=== PATIENT | female | born 1995 | race Caucasian/White ===

== ENCOUNTER 2017-05-24 15:04 | Emergency (ER) | payer MEDICAID ==
[~2017-05-24] VITALS: Ht 162.6 cm; Wt 56.8 kg
[~2017-05-24 15:04] MED LIST: MACR100C2 PO; PREN29TA PO; ZOFR4TAB PO
[2017-05-24 15:15] VITALS: BP 131/86; PULSE 97; RESP 16; TEMP 98.4
[2017-05-24] MEDS ORDERED: SODIUM CHLOR 0.9% 1000 ML INJ 1,000 ML IV SCH (15:29)
[2017-05-24] MEDS ORDERED: SODIUM CHLORIDE 0.9% FLUSH 10 ML FLUSH IV FLUSH PRN (15:30)
[2017-05-24] MEDS ORDERED: ONDANSETRON HCL 4 MG/2 ML VIAL IVP ONE (15:30)
[2017-05-24] MEDS ORDERED: MORPHINE SULFATE 8 MG/ML INJ IV PUSH ONE ×2 (15:30→17:00)
[2017-05-24] MEDS ORDERED: FAMOTIDINE 20 MG/2 ML VIAL IV PUSH ONE (15:30)
[2017-05-24 15:33] LABS: BLOOD, URINE NEG (NEG); GLUCOSE,URINE NEG (NEG); KETONE, URINE NEG (NEG); NITRITE,URINE NEG (NEG)
--- NOTE | 2017-05-24 15:36 | PD ---
HPI Chief Complaint: Abdominal Pain Time Seen by Provider: 15:22 Travel History International Travel<30 days: No Contact w/Intl Traveler<30days: No Traveled to known affect area: No History of Present Illness HPI The patient is a 21-year-old female who presents to the emergency department for abdominal pain. The patient states she developed abdominal pain yesterday, generalized, but mostly located in epigastrium. She does complain of mild nausea without any vomiting, diarrhea, constipation, or change in bowel habits. The patient denies any associated dysuria, frequency, or urgency. She does have a history of previous cholecystectomy. Last menstrual cycle was May 14, 2017, denies . She denies any vaginal discharge or bleeding. The patient denies any acute alleviating or exacerbating factors. Symptoms are moderate, described as dull achy pain, and radiating from the epigastrium to the rest of the abdomen. PFSH Past Medical History ADHD: Yes (ADHD) Cancer: No Cardiovascular Problems: No Diabetes: No Diminished Hearing: No Headaches: Yes (OCCASIONAL HEADACHES) Psychiatric: Yes (PT DIAGNOSED PREVIOUSLY WITH ADHD AND ODD) Immunizations Current: Yes Migraines: No Seizures: No Thyroid Disease: No Ulcer: No ?: Not LMP: 05/14/17 : 2 : 1 Past Surgical History Appendectomy: No Section: No Cholecystectomy: Yes (12/2014) Other Surgery: No Social History Alcohol Use: Yes (rare WHEN NOT ) Tobacco Use: Yes (1 ppd) Substance Use: No Allergies-Medications (Allergen,Severity, Reaction): Coded Allergies: penicillin G (Unverified Allergy, Severe, 05/24/17) . Uncoded Allergies: LACTOSE INTOLERANT (Adverse Reaction, Severe, 05/24/17) .. Reported Meds & Prescriptions Reported Meds & Active Scripts Active Review of Systems Except as stated in HPI: all other systems reviewed are Neg General / Constitutional: No: Fever, Chills Cardiovascular: No: Chest Pain or Discomfort Respiratory: No: Shortness of Breath Gastrointestinal: Positive: Nausea, Abdominal Pain, No: Vomiting, Diarrhea Genitourinary: No: Urgency, Frequency, Dysuria, Discharge, Vaginal Bleeding Musculoskeletal: No: Myalgias Physical Exam Narrative GENERAL: Awake, alert, pleasant 21-year-old female who appears her stated age and is in no acute respiratory distress. SKIN: Focused skin assessment warm/dry. HEAD: Atraumatic. Normocephalic. EYES: No injection or drainage. ENT: No nasal bleeding or discharge. Mucous membranes pink and moist. NECK: Trachea midline. No JVD. CARDIOVASCULAR: Regular rate and rhythm. No murmur appreciated. RESPIRATORY: No accessory muscle use. Clear to auscultation. Breath sounds equal bilaterally. GASTROINTESTINAL: Abdomen soft, mild epigastric tenderness. No rebound tenderness, guarding, rigidity. Back: No CVA tenderness. MUSCULOSKELETAL: No obvious deformities. No clubbing. No cyanosis. No edema. NEUROLOGICAL: Awake and alert. No obvious cranial nerve deficits. Motor grossly within normal limits. Normal speech. PSYCHIATRIC: Appropriate mood and affect; insight and judgment normal. Data Data Last Documented VS Vital Signs Date Time Temp Pulse Resp B/P (MAP) Pulse Ox O2 Delivery O2 Flow Rate FiO2 05/24/17 16:38 16 05/24/17 15:55 99 Room Air 05/24/17 15:15 98.4 97 131/86 (101) Orders Orders Urinalysis - C+S If Indicated (05/24/17 15:15) Ed Urine Pregnancytest Poc (05/24/17 15:15) Complete Blood Count With Diff (05/24/17 15:29) Comprehensive Metabolic Panel (05/24/17 15:29) Lipase (05/24/17 15:29) Iv Access Insert/Monitor (05/24/17 15:29) Ecg Monitoring (05/24/17 15:29) Oximetry (05/24/17 15:29) Ondansetron Inj (Zofran Inj) (05/24/17 15:30) Sodium Chlor 0.9% 1000 Ml Inj (Ns 1000 M (05/24/17 15:29) Sodium Chloride 0.9% Flush (Ns Flush) (05/24/17 15:30) Famotidine Inj (Pepcid Inj) (05/24/17 15:30) Morphine Inj (Morphine Inj) (05/24/17 15:30) Al-Mag Hy-Si 40-40-4 Mg/Ml Liq (Mag-Al P (05/24/17 17:00) Lidocaine 2% Viscous (Xylocaine 2% Visco (05/24/17 17:00) Morphine Inj (Morphine Inj) (05/24/17 17:00) Labs Laboratory Tests Test 05/24/17 15:25 05/24/17 15:45 Urine Color YELLOW Urine Turbidity CLEAR Urine pH 7.0 Urine Specific [place] 1.018 Urine Protein NEG mg/dL Urine Glucose (UA) NEG mg/dL Urine Ketones NEG mg/dL Urine Occult Blood NEG Urine Nitrite NEG Urine Bilirubin NEG Urine Leukocyte Esterase NEG Urine WBC 0-2 /hpf Urine Squamous Epithelial Cells 0-5 /hpf Urine Amorphous Sediment LARGE Microscopic Urinalysis Comment CULT NOT INDICATED White Blood Count 5.2 TH/MM3 Red Blood Count 4.89 MIL/MM3 Hemoglobin 14.1 GM/DL Hematocrit 41.5 % Mean Corpuscular Volume 84.9 FL Mean Corpuscular Hemoglobin 28.9 PG Mean Corpuscular Hemoglobin Concent 34.0 % Red Cell Distribution Width 14.4 % Platelet Count 281 TH/MM3 Mean Platelet Volume 7.5 FL Neutrophils (%) (Auto) 51.1 % Lymphocytes (%) (Auto) 37.3 % Monocytes (%) (Auto) 8.3 % Eosinophils (%) (Auto) 2.4 % Basophils (%) (Auto) 0.9 % Neutrophils # (Auto) 2.8 TH/MM3 Lymphocytes # (Auto) 1.9 TH/MM3 Monocytes # (Auto) 0.4 TH/MM3 Eosinophils # (Auto) 0.1 TH/MM3 Basophils # (Auto) 0.0 TH/MM3 CBC Comment DIFF FINAL Differential Comment Blood Urea Nitrogen 14 MG/DL Creatinine 0.85 MG/DL Random Glucose 92 MG/DL Total Protein 7.6 GM/DL Albumin 3.7 GM/DL Calcium Level 8.6 MG/DL Alkaline Phosphatase 55 U/L Aspartate Amino Transf (AST/SGOT) 17 U/L Alanine Aminotransferase (ALT/SGPT) 19 U/L Total Bilirubin 0.4 MG/DL Sodium Level 136 MEQ/L Potassium Level 4.1 MEQ/L Chloride Level 102 MEQ/L Carbon Dioxide Level 26.8 MEQ/L Anion Gap 7 MEQ/L Estimat Glomerular Filtration Rate 83 ML/MIN Lipase 274 U/L [facility] Medical Decision Making Medical Screen Exam Complete: Yes Emergency Medical Condition: Yes Medical Record Reviewed: Yes Interpretation(s) Laboratory Tests Test 05/24/17 15:25 05/24/17 15:45 Urine Color YELLOW Urine Turbidity CLEAR Urine pH 7.0 Urine Specific [place] 1.018 Urine Protein NEG mg/dL Urine Glucose (UA) NEG mg/dL Urine Ketones NEG mg/dL Urine Occult Blood NEG Urine Nitrite NEG Urine Bilirubin NEG Urine Leukocyte Esterase NEG Urine WBC 0-2 /hpf Urine Squamous Epithelial Cells 0-5 /hpf Urine Amorphous Sediment LARGE Microscopic Urinalysis Comment CULT NOT INDICATED White Blood Count 5.2 TH/MM3 Red Blood Count 4.89 MIL/MM3 Hemoglobin 14.1 GM/DL Hematocrit 41.5 % Mean Corpuscular Volume 84.9 FL Mean Corpuscular Hemoglobin 28.9 PG Mean Corpuscular Hemoglobin Concent 34.0 % Red Cell Distribution Width 14.4 % Platelet Count 281 TH/MM3 Mean Platelet Volume 7.5 FL Neutrophils (%) (Auto) 51.1 % Lymphocytes (%) (Auto) 37.3 % Monocytes (%) (Auto) 8.3 % Eosinophils (%) (Auto) 2.4 % Basophils (%) (Auto) 0.9 % Neutrophils # (Auto) 2.8 TH/MM3 Lymphocytes # (Auto) 1.9 TH/MM3 Monocytes # (Auto) 0.4 TH/MM3 Eosinophils # (Auto) 0.1 TH/MM3 Basophils # (Auto) 0.0 TH/MM3 CBC Comment DIFF FINAL Differential Comment Blood Urea Nitrogen 14 MG/DL Creatinine 0.85 MG/DL Random Glucose 92 MG/DL Total Protein 7.6 GM/DL Albumin 3.7 GM/DL Calcium Level 8.6 MG/DL Alkaline Phosphatase 55 U/L Aspartate Amino Transf (AST/SGOT) 17 U/L Alanine Aminotransferase (ALT/SGPT) 19 U/L Total Bilirubin 0.4 MG/DL Sodium Level 136 MEQ/L Potassium Level 4.1 MEQ/L Chloride Level 102 MEQ/L Carbon Dioxide Level 26.8 MEQ/L Anion Gap 7 MEQ/L Estimat Glomerular Filtration Rate 83 ML/MIN Lipase 274 U/L Differential Diagnosis Differential diagnosis includes , ectopic , UTI, pyelonephritis, pancreatitis, gastritis, peptic ulcer disease, retained biliary stone. Narrative Course IV was established, labs are drawn and sent, and the patient was placed on cardiac telemetry monitoring and continuous pulse oximetry monitoring. Bedside UA test was obtained, was negative. UA was sent to lab. Patient was administered morphine, Pepcid, Zofran, and IV fluids. UA is unremarkable. test is negative. LFTs and lipase are unremarkable. The patient appears to have gastritis, was reevaluated, was sleeping, however, when awakened she said she continued to have pain. Therefore, patient was given a GI cocktail and that there dose of pain medications. The patient is advised to follow-up with gastroenterology on an outpatient basis for possible endoscopy if symptoms persist. The patient be discharged home on Zantac twice a day and Zofran. She is stable for outpatient follow-up. Diagnosis Primary Impression: Gastritis Qualified Codes: K29.00 - Acute gastritis without bleeding Additional Impression: Epigastric abdominal pain Patient Instructions: General Instructions Additional Instructions: Please provide the patient copy of her labs at discharge. Medications as directed. Follow-up with a primary physician. Return if symptoms worsen or progress. If symptoms persist she may benefit from outpatient gastroenterology evaluation for possible outpatient EGD. Med/Other Pt SpecificInfo: Prescription(s) given Scripts Ondansetron Odt (Zofran Odt) 4 Mg Tab 4 MG SL Q6HR Y for Nausea/Vomiting, #10 TAB 0 Refills Prov: Elbert Johnston MD 05/24/17 Ranitidine (Zantac) 150 Mg Tab 150 MG PO BID for Reduce Stomach Acid, #60 TAB 0 Refills Prov: Elbert Johnston MD 05/24/17 Disposition: 01 DISCHARGE HOME Condition: Stable Elbert Johnston MD May 24, 2017 15:36
[2017-05-24 15:48] LABS: COMMENT (UR) CULT NOT INDICATED; CULTURE IF INDICATED CULT NOT INDICATED; SQUAMOUS EPITHELIAL CELL URINE 0-5 /hpf (0-5); URINE COLOR YELLOW (YELLW/STRAW); WBC, URINE 0-2 /hpf (0-5)
[2017-05-24 15:55] VITALS: RESP 16; O2SAT 99
[2017-05-24 16:00] LABS: CHLORIDE 102 MEQ/L (98-107); POTASSIUM 4.1 MEQ/L (3.5-5.1); SODIUM (NA) 136 MEQ/L (136-145)
[2017-05-24 16:04] LABS: ANION GAP 7 MEQ/L (5-15); BICARBONATE 26.8 MEQ/L (21.0-32.0); BLOOD UREA NITROGEN 14 MG/DL (7-18)
[2017-05-24 16:07] LABS: ALT (GPT) 19 U/L (10-53); AST (GOT) 17 U/L (15-37); GLOMERULAR FILTRATION RATE 83 ML/MIN (>89)
[2017-05-24 16:08] LABS: TOTAL BILIRUBIN ADULT 0.4 MG/DL (0.2-1.0)
[2017-05-24 16:10] LABS: ALKALINE PHOSPHATASE 55 U/L (45-117)
[2017-05-24 16:31] LABS: AUTOMATED NEUTROPHIL # 2.8 TH/MM3 (1.8-7.7); BASOPHIL % 0.9 % (0.0-2.0); EOSINOPHIL # 0.1 TH/MM3 (0-0.4); EOSINOPHIL % 2.4 % (0.0-4.0); HEMATOCRIT 41.5 % (35.0-46.0); HEMO FLAGS DIFF FINAL; LYMPH % 37.3 % (9.0-44.0); LYMPHOCYTE # 1.9 TH/MM3 (1.0-4.8); MEAN CELL VOLUME 84.9 FL (80.0-100.0); MEAN CORPUSCULAR HEMOGLOBIN 28.9 PG (27.0-34.0); MONO % 8.3 % (0.0-8.0); NEUT % 51.1 % (16.0-70.0); PLATELET COUNT 281 TH/MM3 (150-450); RED BLOOD COUNT 4.89 MIL/MM3 (4.00-5.30); RED CELL DISTRIBUTION WIDTH 14.4 % (11.6-17.2); WHITE BLOOD COUNT 5.2 TH/MM3 (4.0-11.0)
[2017-05-24 16:32] VITALS: BP 110/61; PULSE 80; RESP 16; O2SAT 98
[2017-05-24] MEDS ORDERED: ALUMINUM/MAGNESIUM/SIMETH 30 ML CUP PO ONE (17:00)
[2017-05-24] MEDS ORDERED: LIDOCAINE VISCOUS 2% SOLN 15 ML UDC PO ONE (17:00)
[2017-05-24] MEDS ORDERED: ZANT150T2 PO (17:06)
[2017-05-24] MEDS ORDERED: ZOFR4TAB3 SL (17:06)
[2017-05-24] MEDS ORDERED: DICYCLOMINE HCL 10 MG CAP PO ONE (17:30)
[2017-05-24 17:45] VITALS: BP 103/56; PULSE 76; RESP 16; O2SAT 97
== END 2017-05-24 17:56 | disposition home or self-care (01) ==
LOC: PHED 15:04
DX: K29.00 Acute gastritis without bleeding (principal); F17.200 Nicotine dependence, unspecified, uncomplicated; Z90.49 Acquired absence of other specified parts of digestive tract
CPT/HCPCS: 80053; 81001; 83690; 84703; 85025; 96361; 96374; 96375; 96376; 99284; J2270; J2405; J7030

== ENCOUNTER 2017-07-30 14:11 | Emergency (ER) | payer MEDICAID ==
[~2017-07-30] VITALS: Ht 162.6 cm; Wt 58.0 kg
[~2017-07-30 14:11] MED LIST changes: -MACR100C2 PO; -PREN29TA PO; +ZANT150T2 PO; -ZOFR4TAB PO; +ZOFR4TAB3 SL
[2017-07-30 14:15] VITALS: BP 131/76; PULSE 72; RESP 16; TEMP 97.8; O2SAT 100
[2017-07-30 14:28] LABS: BILIRUBIN, URINE NEG (NEG); BLOOD, URINE NEG (NEG); GLUCOSE,URINE NEG (NEG); KETONE, URINE NEG (NEG); NITRITE,URINE NEG (NEG); URINE LEUKOCYTE ESTERASE MOD (NEG)
[2017-07-30 14:48] LABS: SQUAMOUS EPITHELIAL CELL URINE 0-5 /hpf (0-5); URINE COLOR YELLOW (YELLW/STRAW)
[2017-07-30 14:49] LABS: WHITE BLOOD CELL CLUMPS FEW
[2017-07-30 14:50] LABS: BACTERIA, URINE RARE /hpf
[2017-07-30] MEDS ORDERED: SODIUM CHLOR 0.9% 1000 ML INJ 1,000 ML IV ONE (14:56)
[2017-07-30] MEDS ORDERED: KETOROLAC TROMETHAMINE 30 MG/ML (IVP) VIAL IV PUSH ONE (15:00)
[2017-07-30] MEDS ORDERED: cefTRIAXone INJ 1,000 MG in SODIUM CHLORIDE 0.9% INJ 100 ML IV ONE (15:00)
--- NOTE | 2017-07-30 15:02 | PD ---
HPI Chief Complaint: Complaint Time Seen by Provider: 14:47 Travel History International Travel<30 days: No Contact w/Intl Traveler<30days: No Traveled to known affect area: No History of Present Illness HPI This 21-year-old female is complaining of lower abdominal pain. She had a baby 8 months ago. Her last period was last week and lasted 3 days. She's been having lower abdominal pain for several months but has gotten a lot worse the last few days. She has noted some discharge. She has some burning with urination. She has cold sweats at times. He does not recall having this pain before. Pain is suprapubic and bilateral PFSH Past Medical History ADHD: Yes (ADHD) Weight (Kg): 3 Cancer: No Cardiovascular Problems: No Diabetes: No Diminished Hearing: No Headaches: Yes (OCCASIONAL HEADACHES) Psychiatric: Yes (PT DIAGNOSED PREVIOUSLY WITH ADHD AND ODD) Immunizations Current: Yes Migraines: No Seizures: No Thyroid Disease: No Ulcer: No Tetanus Vaccination: < 5 Years Influenza Vaccination: No ?: Not LMP: ONE WEEK : 2 Para: 1 : 1 Past Surgical History Appendectomy: No Section: No Cholecystectomy: Yes (12/2014) Other Surgery: No Social History Alcohol Use: Yes (rare WHEN NOT ) Tobacco Use: Yes (1 ppd) Substance Use: No Allergies-Medications (Allergen,Severity, Reaction): Coded Allergies: penicillin G (Unverified Allergy, Severe, 07/30/17) . Uncoded Allergies: LACTOSE INTOLERANT (Adverse Reaction, Severe, 05/24/17) .. Reported Meds & Prescriptions Reported Meds & Active Scripts Active Zofran Odt (Ondansetron Odt) 4 Mg Tab 4 Mg SL Q6HR PRN Zantac (Ranitidine HCl) 150 Mg Tab 150 Mg PO BID Review of Systems General / Constitutional: Positive: Chills, No: Fever Eyes: No: Blurred Vision, Photophobia HENT: No: Headaches, Vertigo Cardiovascular: No: Chest Pain or Discomfort, Palpitations Respiratory: No: Cough, Shortness of Breath Gastrointestinal: Positive: Abdominal Pain, No: Constipation Genitourinary: Positive: Dysuria, Pelvic Pain, Discharge Musculoskeletal: No: Myalgias, Arthralgias Skin: No Rash Neurologic: No: Weakness, Dizziness Hematologic/Lymphatic: No: Easy Bruising Physical Exam Narrative GENERAL: Well-developed male SKIN: Focused skin assessment warm/dry. HEAD: Atraumatic. Normocephalic. EYES: Pupils equal and round. No scleral icterus. No injection or drainage. ENT: No nasal bleeding or discharge. Mucous membranes pink and moist. NECK: Trachea midline. No JVD. CARDIOVASCULAR: Regular rate and rhythm. No murmur appreciated. RESPIRATORY: No accessory muscle use. Clear to auscultation. Breath sounds equal bilaterally. GASTROINTESTINAL: Abdomen soft, lower abdominal tenderness nondistended. Hepatic and splenic margins not palpable. Pelvic: There is heavy discharge. There is pain with movement of the cervix. There is bilateral adnexal and uterine tenderness. MUSCULOSKELETAL: No obvious deformities. No clubbing. No cyanosis. No edema. NEUROLOGICAL: Awake and alert. No obvious cranial nerve deficits. Motor grossly within normal limits. Normal speech. PSYCHIATRIC: Appropriate mood and affect; insight and judgment normal. Data Data Last Documented VS Vital Signs Date Time Temp Pulse Resp B/P (MAP) Pulse Ox O2 Delivery O2 Flow Rate FiO2 07/30/17 14:15 97.8 72 16 131/76 (94) 100 Orders Orders Urinalysis - C+S If Indicated (07/30/17 14:18) Ed Urine Pregnancytest Poc (07/30/17 14:18) Complete Blood Count With Diff (07/30/17 14:56) Basic Metabolic Panel (Bmp) (07/30/17 14:56) Gc And Chlamydia Pcr (07/30/17 14:56) Us Pelvis Comp Electronic Gaming Device Supervisor/Non-Preg (07/30/17 ) Wet Prep Profile (07/30/17 14:56) Iv Access Insert/Monitor (07/30/17 14:56) Ceftriaxone Inj (Rocephin Inj) (07/30/17 15:00) Sodium Chlor 0.9% 1000 Ml Inj (Ns 1000 M (07/30/17 14:56) Ketorolac Inj (Toradol Inj) (07/30/17 15:00) Urine Culture (07/30/17 14:15) Labs Laboratory Tests Test 07/30/17 14:15 07/30/17 15:00 Urine Color YELLOW Urine Turbidity CLEAR Urine pH 7.0 Urine Specific [place] 1.008 Urine Protein NEG mg/dL Urine Glucose (UA) NEG mg/dL Urine Ketones NEG mg/dL Urine Occult Blood NEG Urine Nitrite NEG Urine Bilirubin NEG Urine Leukocyte Esterase MOD Urine WBC 3-5 /hpf Urine WBC Clumps FEW Urine Squamous Epithelial Cells 0-5 /hpf Urine Bacteria RARE /hpf Microscopic Urinalysis Comment CULTURE INDICATED White Blood Count 5.3 TH/MM3 Red Blood Count 4.55 MIL/MM3 Hemoglobin 13.5 GM/DL Hematocrit 40.3 % Mean Corpuscular Volume 88.6 FL Mean Corpuscular Hemoglobin 29.7 PG Mean Corpuscular Hemoglobin Concent 33.5 % Red Cell Distribution Width 13.3 % Platelet Count 262 TH/MM3 Mean Platelet Volume 7.5 FL Neutrophils (%) (Auto) 63.1 % Lymphocytes (%) (Auto) 27.6 % Monocytes (%) (Auto) 7.3 % Eosinophils (%) (Auto) 1.1 % Basophils (%) (Auto) 0.9 % Neutrophils # (Auto) 3.3 TH/MM3 Lymphocytes # (Auto) 1.5 TH/MM3 Monocytes # (Auto) 0.4 TH/MM3 Eosinophils # (Auto) 0.1 TH/MM3 Basophils # (Auto) 0.0 TH/MM3 CBC Comment DIFF FINAL Differential Comment Clue Cells (Wet Prep) NONE SEEN Vaginal Trichomonas (Wet Prep) NONE SEEN Vaginal Yeast (Wet Prep) NONE SEEN Blood Urea Nitrogen 10 MG/DL Creatinine 0.68 MG/DL Random Glucose 88 MG/DL Calcium Level 8.9 MG/DL Sodium Level 137 MEQ/L Potassium Level 3.5 MEQ/L Chloride Level 103 MEQ/L Carbon Dioxide Level 29.1 MEQ/L Anion Gap 5 MEQ/L Estimat Glomerular Filtration Rate 107 ML/MIN [facility] Medical Decision Making Medical Screen Exam Complete: Yes Emergency Medical Condition: Yes Medical Record Reviewed: Yes Differential Diagnosis Differential includes ectopic , PID, tubo-ovarian abscess Narrative Course test is negative. Patient has been given Rocephin. Pelvic exam is consistent with PID. An ultrasound has been ordered to rule out tubo-ovarian abscess. Hemoglobin is 13 5 with a white count of 5.7. Wet prep is negative Diagnosis Primary Impression: Pelvic inflammatory disease Scripts Doxycycline (Monohydrate) (Doxycycline) 100 Mg Cap 1 TAB PO BID for 20 Days Prov: Doug Ahumada MD 07/30/17 Disposition: 01 DISCHARGE HOME Condition: Stable Doug Ahumada MD Jul 30, 2017 15:02
[2017-07-30 15:15] LABS: AUTOMATED NEUTROPHIL # 3.3 TH/MM3 (1.8-7.7); BASOPHIL % 0.9 % (0.0-2.0); EOSINOPHIL # 0.1 TH/MM3 (0-0.4); EOSINOPHIL % 1.1 % (0.0-4.0); HEMATOCRIT 40.3 % (35.0-46.0); HEMOGLOBIN 13.5 GM/DL (11.6-15.3); LYMPH % 27.6 % (9.0-44.0); LYMPHOCYTE # 1.5 TH/MM3 (1.0-4.8); MEAN CELL VOLUME 88.6 FL (80.0-100.0); MEAN CORPUSCULAR HEMOGLOBIN 29.7 PG (27.0-34.0); MEAN CORPUSCULAR HGB CONC 33.5 % (32.0-36.0); MEAN PLATELET VOLUME 7.5 FL (7.0-11.0); MONO % 7.3 % (0.0-8.0); MONOCYTE # 0.4 TH/MM3 (0-0.9); NEUT % 63.1 % (16.0-70.0); PLATELET COUNT 262 TH/MM3 (150-450); RED BLOOD COUNT 4.55 MIL/MM3 (4.00-5.30); RED CELL DISTRIBUTION WIDTH 13.3 % (11.6-17.2); WHITE BLOOD COUNT 5.3 TH/MM3 (4.0-11.0)
[2017-07-30 15:30] LABS: BICARBONATE 29.1 MEQ/L (21.0-32.0); CALCIUM 8.9 MG/DL (8.5-10.1)
[2017-07-30 15:34] LABS: CREATININE 0.68 MG/DL (0.50-1.00)
[2017-07-30] MEDS ORDERED: DOXY1CAP91 PO (15:47)
[2017-07-30 16:22] VITALS: BP 114/75; PULSE 68; RESP 18; O2SAT 100
--- NOTE | 2017-07-30 16:42 | RADRPT ---
EXAM DATE/TIME: 07/30/2017 16:05 [place] COMPARISON: No previous studies available for comparison. INDICATIONS : Pelvic pain. MEDICAL HISTORY : Pelvic pain. SURGICAL HISTORY : Cholecystectomy. ENCOUNTER: Initial ACUITY: 4-6 days PAIN SCORE: 7/10 LOCATION: Bilateral pelvis MEASUREMENTS: UTERUS: 7.1 x 4.0 x 3.5 cm ENDOMETRIAL STRIPE: 9 mm RIGHT OVARY: 2.5 x 1.9 x 1.7 cm LEFT OVARY: 1.8 x 3.2 x 1.3 cm FINDINGS: UTERUS: The myometrium has homogeneous echotexture without mass. RIGHT OVARY: Ovary contains no mass or significant cystic lesion. LEFT OVARY: Ovary contains no mass or significant cystic lesion. MISCELLANEOUS: Small amount free fluid. CONCLUSION: 1. Free fluid in the pelvic cul-de-sac 2. No evidence of complex cystic or solid masses in the adnexa 3. Cervical cysts likely resenting a nabothian cyst. 4. otherwise normal appearing uterus and ovaries Panda Lee MD on July 30, 2017 at 16:37 Board Certified Radiologist. This report was verified electronically.
--- NOTE | 2017-07-30 16:52 | PD ---
Physical Exam Narrative Patient was seen by ED physician and signed out to me. Data Data Last Documented VS Vital Signs Date Time Temp Pulse Resp B/P (MAP) Pulse Ox O2 Delivery O2 Flow Rate FiO2 07/30/17 16:22 68 18 114/75 (88) 100 Room Air 07/30/17 14:15 97.8 Orders Orders Urinalysis - C+S If Indicated (07/30/17 14:18) Ed Urine Pregnancytest Poc (07/30/17 14:18) Complete Blood Count With Diff (07/30/17 14:56) Basic Metabolic Panel (Bmp) (07/30/17 14:56) Gc And Chlamydia Pcr (07/30/17 14:56) Us Pelvis Comp Medical Claims Representative/Non-Preg (07/30/17 ) Wet Prep Profile (07/30/17 14:56) Iv Access Insert/Monitor (07/30/17 14:56) Ceftriaxone Inj (Rocephin Inj) (07/30/17 15:00) Sodium Chlor 0.9% 1000 Ml Inj (Ns 1000 M (07/30/17 14:56) Ketorolac Inj (Toradol Inj) (07/30/17 15:00) Urine Culture (07/30/17 14:15) Labs Laboratory Tests Test 07/30/17 14:15 07/30/17 15:00 Urine Color YELLOW Urine Turbidity CLEAR Urine pH 7.0 Urine Specific [place] 1.008 Urine Protein NEG mg/dL Urine Glucose (UA) NEG mg/dL Urine Ketones NEG mg/dL Urine Occult Blood NEG Urine Nitrite NEG Urine Bilirubin NEG Urine Leukocyte Esterase MOD Urine WBC 3-5 /hpf Urine WBC Clumps FEW Urine Squamous Epithelial Cells 0-5 /hpf Urine Bacteria RARE /hpf Microscopic Urinalysis Comment CULTURE INDICATED White Blood Count 5.3 TH/MM3 Red Blood Count 4.55 MIL/MM3 Hemoglobin 13.5 GM/DL Hematocrit 40.3 % Mean Corpuscular Volume 88.6 FL Mean Corpuscular Hemoglobin 29.7 PG Mean Corpuscular Hemoglobin Concent 33.5 % Red Cell Distribution Width 13.3 % Platelet Count 262 TH/MM3 Mean Platelet Volume 7.5 FL Neutrophils (%) (Auto) 63.1 % Lymphocytes (%) (Auto) 27.6 % Monocytes (%) (Auto) 7.3 % Eosinophils (%) (Auto) 1.1 % Basophils (%) (Auto) 0.9 % Neutrophils # (Auto) 3.3 TH/MM3 Lymphocytes # (Auto) 1.5 TH/MM3 Monocytes # (Auto) 0.4 TH/MM3 Eosinophils # (Auto) 0.1 TH/MM3 Basophils # (Auto) 0.0 TH/MM3 CBC Comment DIFF FINAL Differential Comment Clue Cells (Wet Prep) NONE SEEN Vaginal Trichomonas (Wet Prep) NONE SEEN Vaginal Yeast (Wet Prep) NONE SEEN Blood Urea Nitrogen 10 MG/DL Creatinine 0.68 MG/DL Random Glucose 88 MG/DL Calcium Level 8.9 MG/DL Sodium Level 137 MEQ/L Potassium Level 3.5 MEQ/L Chloride Level 103 MEQ/L Carbon Dioxide Level 29.1 MEQ/L Anion Gap 5 MEQ/L Estimat Glomerular Filtration Rate 107 ML/MIN MDM Supervised Visit with NATALIA: No Interpretation(s) Last Impressions Pelvis Ultrasound 07/30/17 0000 Signed Impressions: Service Date/Time: Sunday, July 30, 2017 16:05 - CONCLUSION: 1. Free fluid in the pelvic cul-de-sac 2. No evidence of complex cystic or solid masses in the adnexa 3. Cervical cysts likely resenting a nabothian cyst. 4. otherwise normal appearing uterus and ovaries Panda Lee MD Diagnosis Primary Impression: Pelvic inflammatory disease Patient Instructions: General Instructions Additional Instruction: Doxycycline as directed. Tylenol or ibuprofen for pain. Follow-up with personal physician and controls technician. Return if worse. Med/Other Pt SpecificInfo: Prescription(s) given Scripts Doxycycline (Monohydrate) (Doxycycline) 100 Mg Cap 1 TAB PO BID for 20 Days Prov: Doug Ahumada MD 07/30/17 Disposition: 01 DISCHARGE HOME Condition: Stable Holger Nichole MD Jul 30, 2017 16:52
== END 2017-07-30 17:04 | disposition home or self-care (01) ==
LOC: PHED 14:11
DX: N73.9 Female pelvic inflammatory disease, unspecified (principal); F90.9 Attention-deficit hyperactivity disorder, unspecified type; F17.200 Nicotine dependence, unspecified, uncomplicated
CPT/HCPCS: 76856; 80048; 81001; 84703; 85025; 87086; 87210; 87491; 87591; 96365; 96375; 99285; J0696; J1885; J7030